=== PATIENT | female | born 2000 | race Two or more races ===

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

== ENCOUNTER 2019-05-21 17:51 | Emergency (ER) | payer OTHER ==
[~2019-05-21] VITALS: Ht 160 cm; Wt 65.8 kg
[~2019-05-21 17:51] MED LIST changes: +BACTRIM DS TAB1 EAC1 ORAL; +MUPIROCIN22 GM TOPIC; +TYLENOL EXTRA500 MG ORAL
[2019-05-21] MEDS ORDERED: NKM (18:00)
--- NOTE | 2019-05-21 18:05 | NUR ---
ED Nurse Note: Walk-in patient presents with complaints of left index finger pain d/t being smashed in a car door three hours ago. Patient also reports pain in the entire left arm 8/10 on pain scale. Will continue to monitor.
[2019-05-21 18:06] VITALS: BP 110/74
--- NOTE | 2019-05-21 18:09 | NUR ---
ED Nurse Note: Patient went down to radiology for xray.
--- NOTE | 2019-05-21 18:20 | NUR ---
ED Nurse Note: Patient returned from Xray.
--- NOTE | 2019-05-21 18:58 | Emergency Room Report ---
History of Present Illness General Chief Complaint: Upper Extremity Injury Source: Patient Present Illness HPI 19-year-old female with no significant past medical history complaining of pain and swelling of the left index finger after she crusted in a car door today. Patient reports that there was a regular Joaquín of a sedan that completely closed in her left index finger today. Denies any bleeding. However rates the pain 7 out of 10 without radiation denying tingling numbness. Has full range of motion with discomfort. Minimal swelling is noted no subungual hematoma is noted. No active bleeding is noted. Patient denies all other injuries. He denies chest pain, shortness of breath, palpitation, no other associated symptoms. Has not taken medication for symptom relief. Allergies: Coded Allergies: No Known Allergies (Unverified , 02/19/18) Patient History Past Medical History: see triage record Past Surgical History: unable to obtain Pertinent Family History: none Last Menstrual Period: 09/2018 Now: No Immunizations: UTD Reviewed Nursing Documentation: PMH: Agreed; PSxH: Agreed Nursing Documentation-PMH Past Medical History: No Stated History Hx Asthma: Yes Review of Systems All Other Systems: negative except mentioned in HPI Physical Exam Vital Signs Date Time Temp Pulse Resp B/P (MAP) Pulse Ox O2 Delivery O2 Flow Rate FiO2 05/21/19 17:57 98.4 68 16 110/74 (86) 98 Room Air Sp02 EP Interpretation: reviewed, normal General Appearance: no apparent distress, alert, GCS 15, non-toxic Head: normocephalic, atraumatic Eyes: bilateral eye normal inspection, bilateral eye PERRL ENT: hearing grossly normal, normal pharynx, no angioedema, normal voice Neck: full range of motion, supple/symm/no masses Respiratory: chest non-tender, lungs clear, normal breath sounds, no wheezing, speaking full sentences Cardiovascular #1: regular rate, rhythm, no edema, no murmur Cardiovascular #2: 2+ radial (R), 2+ radial (L) Gastrointestinal: normal bowel sounds, non tender, soft, non-distended, no guarding, no rebound Musculoskeletal: back normal, gait/station normal, normal range of motion, non- tender, swelling - left index finger at dip Neurologic: alert, oriented x3, responsive, motor strength/tone normal, sensory intact, speech normal Psychiatric: judgement/insight normal, memory normal, mood/affect normal, no suicidal/homicidal ideation Skin: no rash, Ecchymosis/Bruising - left indx finger Lymphatic: normal inspection Procedures Splinting Splinting : Consent: Verbal Location: left index finger Pre-Made Type: metal Pre-Proc Neuro Vasc Exam: normal Post-Proc Neuro Vasc Exam: normal Patient Tolerated: Well Complications: None Medical Decision Making PA Attestation All my diagnosis and treatment plans were reviewed ad discussed with my supervising physician Dr. Romero Diagnostic Impression: Primary Impression: Crushing injury of finger ER Course 19-year-old female with no significant past medical history complaining of pain and swelling of the left index finger after she crusted in a car door today. Patient reports that there was a regular Joaquín of a sedan that completely closed in her left index finger today. Denies any bleeding. However rates the pain 7 out of 10 without radiation denying tingling numbness. Has full range of motion with discomfort. Minimal swelling is noted no subungual hematoma is noted. No active bleeding is noted. Patient denies all other injuries. He denies chest pain, shortness of breath, palpitation, no other associated symptoms. Has not taken medication for symptom relief. Ddx considered but are not limited to: Hand sprain, hand sprain, hand fracture, finger crushing injury, contusion, fracture Vital signs: are WNL, pt. is afebrile H&PE are most consistent with : Finger crushing injury ORDERS: Hand x-ray, ibuprofen ED INTERVENTIONS: Metal splint DISCHARGE: At this time pt. is stable for d/c to home. Will provide printed patient care instructions, and any necessary prescriptions. Care plan and follow up instructions have been discussed with the patient prior to discharge. I advised the patient to follow with rn clinical documentation specialist also I told her that the treatment for crushed finger and fracture from finger is the same wearing the metal splint and follow with Ortho. Patient agrees with the above treatment Other X-Ray Diagnostic Results Other X-Ray Diagnostic Results : X-Ray ordered: Finger # of Views/Limited Vs Complete: 3 View Indication: Pain EP Interpretation: Yes TAWNY Xray: Interpretation reviewed, by supervising MD, and agrees with findings. Interpretation: no dislocation, no soft tissue swelling, other - Questionable crushing injury fracture Impression: No acute disease Electronically Signed by: Fatimah Abdi PA-C Last Vital Signs Date Time Temp Pulse Resp B/P (MAP) Pulse Ox O2 Delivery O2 Flow Rate FiO2 05/21/19 18:06 98.4 86 16 110/74 98 Room Air Disposition: HOME, SELF-CARE Condition: Stable Scripts Ibuprofen (Ibu) 800 Mg Tablet 800 MG PO TID, #30 TAB Prov: Fatimah Brady 05/21/19 Patient Instructions: Crush Injury, Fingers or Toes, [id number] Additional Instructions: Keep splint on take medication as directed follow-up with your primary care provider Fatimah Brady May 21, 2019 18:58
[2019-05-21] MEDS ORDERED: IBU800 MG PO (18:59)
--- NOTE | 2019-05-21 19:07 | NUR ---
ED Nurse Note: Patient finger has been wrapped. PAtient cleared for discharge, no s/s of acute distress. Patient verbalized understanding of discharge instructions. ID band removed. Patient departed with all belongings, accompanied by her boyfriend.
[2019-05-21 19:19] VITALS: BP 110/74
--- NOTE | 2019-05-22 14:19 | Diagnostic Imaging Report ---
Indication: Trauma, pain Technique: 3 views of the left second digit Comparison: none Findings: No acute fractures. No dislocations. Joint spaces are preserved Impression: Negative
== END 2019-05-21 19:07 | disposition home or self-care (01) ==
LOC: EMR 18:26
DX: S67.191A Crushing injury of left index finger, initial encounter (principal); J45.909 Unspecified asthma, uncomplicated; W23.0XXA Caught, crushed, jammed, or pinched between moving objects, initial encounter; Y92.810 Car as the place of occurrence of the external cause
CPT/HCPCS: 29130; 99283

== ENCOUNTER 2020-03-07 21:23 | Emergency (ER) | payer MEDICAID, OTHER ==
[~2020-03-07 21:23] MED LIST changes: +IBU800 MG PO; +NKM
== END 2020-03-08 01:30 | disposition home or self-care (01) ==
DX: O20.0 Threatened abortion (principal); Z3A.00 Weeks of gestation of pregnancy not specified
CPT/HCPCS: 36415; 76830; 76856; 80053; 81003; 83690; 84702; 85025; 85610; 85730; 86850; 86900; 86901; Z7502

== ENCOUNTER 2020-07-19 13:00 | Emergency (ER) | payer MEDICAID ==
[~2020-07-19] VITALS: Ht 160 cm; Wt 71.7 kg
[~2020-07-19 13:00] MED LIST changes: +ZOFRAN4 M1 ORAL
[2020-07-19 13:55] VITALS: BP 125/82
[2020-07-19] MEDS ORDERED: Ketorolac 30mg Inj IM ONE (14:00)
[2020-07-19] MEDS ORDERED: Metoclopramide 10mg/2ml Inj IM ONE (14:00)
[2020-07-19 14:27] LABS: APPEARANCE,URINE CLEAR; BILIRUBIN, URINE NEGATIVE (NEGATIVE); COLOR,URINE PALE YELLOW; GLUCOSE, URINE (UA) NEGATIVE (NEGATIVE); KETONES,URINE NEGATIVE (NEGATIVE); LEUKOCYTE ESTERASE ,URINE NEGATIVE (NEGATIVE); NITRITE,URINE NEGATIVE (NEGATIVE); PH,URINE 6 (4.5-8.0); PROTEIN,URINE NEGATIVE (NEGATIVE); UROBILINOGEN,URINE NORMAL MG/DL (0.0-1.0)
--- NOTE | 2020-07-19 14:36 | Emergency Room Report ---
History of Present Illness General Chief Complaint: Flu Like Symptoms Source: Patient (Princess Fried) Present Illness HPI 20-year-old female presents to the emergency department complaining of 8 out of 10 severity right-sided throbbing persistent headache that was progressive on onset x3 days. Patient reports history of migraines and states that her current symptoms are similar in character to symptoms that she typically has during a migraine. Patient reports aura with seeing black spots. Patient states no relief with Tylenol. She reports usually the migraine will subside after a day or so if she stays in a dark quiet place and usually sleeps it off. Patient states she does not actually have a neurologist. She reports nausea denies vomiting. Patient reports that she did cough once or twice on Tuesday of this week she states that this is not a symptom that she is complaining of it was merely asked during triage screening. She denies fevers or chills. Neck pain or stiffness. She denies suspicion of . She denies any URI symptoms such as nasal congestion rhinorrhea, or sore throat. Denies abdominal pain or tenderness. Denies constipation or diarrhea. No other significant past medical history other than childhood asthma. Denies paresthesias, muscle weakness or difficulty with speech. (Princess Fried) Allergies: Coded Allergies: No Known Allergies (Unverified , 02/19/18) COVID-19 Screening Contact w/high risk pt: No Experienced COVID-19 symptoms?: Yes COVID-19 Testing performed MANAGER TECHNICAL TRAINING: Yes COVID-19 Screening: Negative COVID-19 COVID-19 Testing [place] [facility] [place]Princess Fried[place] Patient History Past Medical History: see triage record Past Surgical History: none Pertinent Family History: none Last Menstrual Period: now Now: No Reviewed Nursing Documentation: PMH: Agreed; PSxH: Agreed (Princess Fried) Nursing Documentation-PMH Past Medical History: No History, Except For Hx Cardiac Problems: No Hx Asthma: Yes - childhood asthma not on medications as an adult Hx Cancer: No Hx Gastrointestinal Problems: No Hx Neurological Problems: Yes - migraines (Princess Fried) Review of Systems All Other Systems: negative except mentioned in HPI (Princess Fried) Physical Exam Vital Signs Date Time Temp Pulse Resp B/P (MAP) Pulse Ox O2 Delivery O2 Flow Rate FiO2 07/19/20 13:05 98.2 77 20 121/81 (94) 97 Room Air 07/19/20 13:55 98 Sp02 EP Interpretation: reviewed, normal General Appearance: no apparent distress, alert, GCS 15, non-toxic Head: normocephalic, atraumatic Eyes: bilateral eye normal inspection, bilateral eye PERRL, bilateral eye EOMI, bilateral eye other - no significan tphotophobis ENT: hearing grossly normal, normal voice Neck: full range of motion, no meningismus, no bony tend Respiratory: chest non-tender, lungs clear, normal breath sounds, no respiratory distress, no accessory muscle use, no wheezing, speaking full sentences Cardiovascular #1: regular rate, rhythm, normal capillary refill Gastrointestinal: normal bowel sounds, non tender, soft Genitourinary: normal inspection, no CVA tenderness Musculoskeletal: back normal, normal range of motion, gait/station normal, non- tender Neurologic: alert, motor strength/tone normal, distal neuro normal, oriented x3, sensory intact, cerebellar normal, responsive, speech normal, normal gait, grossly normal, no focal defects Psychiatric: judgement/insight normal Skin: no rash, normal color Lymphatic: no adenopathy (Princess Fried) Medical Decision Making PA Attestation Dr. Cortez is my supervising Physician whom patient management has been discussed with. (Princess Fried) Diagnostic Impression: Primary Impression: Headache Qualified Codes: R51.9 - Headache, unspecified ER Course 20-year-old female presents to the emergency department complaining of 8 out of 10 severity right-sided throbbing persistent headache that was progressive on onset x3 days. Patient reports history of migraines and states that her current symptoms are similar in character to symptoms that she typically has during a migraine. Patient reports aura with seeing black spots. Patient states no relief with Tylenol. She reports usually the migraine will subside after a day or so if she stays in a dark quiet place and usually sleeps it off. Patient states she does not actually have a neurologist. She reports nausea denies vomiting. Patient reports that she did cough once or twice on Tuesday of this week she states that this is not a symptom that she is complaining of it was merely asked during triage screening. She denies fevers or chills. Neck pain or stiffness. She denies suspicion of . She denies any URI symptoms such as nasal congestion rhinorrhea, or sore throat. Denies abdominal pain or tenderness. Denies constipation or diarrhea. No other significant past medical history other than childhood asthma. Denies paresthesias, muscle weakness or difficulty with speech. Ddx considered but are not limited to migraine, SAH, Pseudomotor Cerebri, Mass lesion, Cluster MERCER, Tension MERCER, Post lumbar puncture MERCER. Vital signs: are WNL, pt. is afebrile H&PE are most consistent with migraine headache-no focal neurological deficits. Patient is nontoxic in appearance and in no significant acute distress. ORDERS: - UA -Urine Hcg: negative ED INTERVENTIONS: -10 mg Reglan IM -IM Toradol 15mg -Benadryl 25mg PO upon re-evaluation of pt. after ED interventions, Pt. reports her MERCER has almost completely subsided. She reports feeling much better and we discussed dc plan. -I do not identify an emergent condition at this time. With current presentation, pt. is stable for close outpatient follow up and conservative treatment. D/w pt. to return promptly to ED with worsening or new symptoms.- Pt. verbalizes' understanding and agreement with proposed treatment plan. DISCHARGE: At this time pt. is stable for d/c to home. Will provide printed patient care instructions, and any necessary prescriptions. Care plan and follow up instructions have been discussed with the patient prior to discharge. Labs Test 07/19/20 13:12 Urine Color Pale yellow Urine Appearance Clear Urine pH 6 (4.5-8.0) Urine Specific Spencer 1.020 (1.005-1.035) Urine Protein Negative (NEGATIVE) Urine Glucose (UA) Negative (NEGATIVE) Urine Ketones Negative (NEGATIVE) Urine Blood 1+ (NEGATIVE) Urine Nitrite Negative (NEGATIVE) Urine Bilirubin Negative (NEGATIVE) Urine Urobilinogen Normal MG/DL (0.0-1.0) Urine Leukocyte Esterase Negative (NEGATIVE) Urine RBC 0-2 /HPF (0 - 2) Urine WBC 0 /HPF (0 - 2) Urine Squamous Epithelial Cells Occasional /LPF Urine Bacteria Occasional /HPF (NONE) Urine HCG, Qualitative Negative (NEGATIVE) (Princess Fried) Last Vital Signs Date Time Temp Pulse Resp B/P (MAP) Pulse Ox O2 Delivery O2 Flow Rate FiO2 07/19/20 13:55 79 21 Room Air 98 07/19/20 13:55 98.2 125/82 98 Status: improved (Princess Fried) Disposition: HOME, SELF-CARE Condition: Stable Scripts Acetamin/Butalbital/Caffeine* (FIORICET*) 1 Ea Tab 1 TAB ORAL Q6H, #12 TAB 0 Refills Prov: Princess Fried 07/19/20 Referrals: NOT CHOSEN IPA/MD,REFERRING (PCP) Additional Instructions: Take medications as directed. Follow up with a Primary Care Provider in 3-5 days For a referral to have NEUROLOGIST Evaluation, even if your symptoms have resolved. --Please review list of primary care clinics, if you do not already have a primary care provider Return sooner to ED if new symptoms occur, or current symptoms become worse. - Please note that this Emergency Department Report was dictated using [employer] manager technology software, occasionally this can lead to erroneous entry secondary to interpretation by the dictation equipment. Princess Fried Jul 19, 2020 14:36 David Cortez MD Jul 19, 2020 17:52
[2020-07-19] MEDS ORDERED: FIORICET1 EA ORAL (15:38)
[2020-07-19 16:07] VITALS: BP 123/72
== END 2020-07-19 16:08 | disposition home or self-care (01) ==
LOC: EMR 13:20
DX: R51.9 Headache, unspecified (principal)
CPT/HCPCS: 81003; 81025; 96372; J1885; J2765; Z7502; 99283

== ENCOUNTER 2020-10-17 08:13 | Emergency (ER) | payer MEDICAID ==
[~2020-10-17] VITALS: Ht 162.6 cm; Wt 72.6 kg
[~2020-10-17 08:13] MED LIST changes: +FIORICET1 EA ORAL
--- NOTE | 2020-10-17 08:26 | Emergency Room Report ---
History of Present Illness General Chief Complaint: To Be Triaged Source: Patient Present Illness HPI 20-year-old female with past medical history of ectopic March 2020 presents emergency department complaining of vaginal bleeding and lower pelvic abdominal cramping. Last menstrual period was 7 weeks ago and she states that she is 7 weeks . Apparently she saw her primary care doctor yesterday and did a urine test which came back negative. She was confused because she had had several urine test that were performed at home on the same day that were positive. [facility]. She was advised to go to an outpatient lab, however they were all closed today. She is here specifically to get her hormone levels checked to confirm . She has only bled through 1 pad today, denies vaginal hemorrhaging, nausea, vomiting, chest pain, back pain, shortness of breath, lightheadedness, presyncope/syncope, headache, hematuria, dysuria, melena, hematochezia, or history of blood transfusion. The patient's symptoms were gradual onset, severity was moderate, duration since Tuesday (5 days). Quality: Cramping Past medical history: Ectopic Past surgical history: Denies Smoking: Denies Alcohol use: Denies Drug use: Denies Review of systems: CONST: No fevers or chills, No night sweats PULMONARY: No productive cough, No shortness of breath CARDIAC: No chest pain, No palpitations GI: No vomiting, No diarrhea , No melena_or_BRBPR : No dysuria, No hematuria, No discharge NEURO: No new_focal_weakness_or_numbness, No confusion, No vision changes 14 point Review of Systems is otherwise negative except per HPI Physical Exam: GENERAL: Awake_alert_ nontoxic, no acute distress Spo2 100% on RA -normal EYES: Extraocular muscles are intact. Conjunctivae clear. Lids without swelling ENT: External nose and ear normal_in_appearance. Oropharynx clear. Head_atraumatic, Moist_oral_mucosa NECK: No JVD. No meningismus. No thyromegaly. Supple. Trachea midline RESP: Normal respiratory effort. Symmetric rise. No stridor. Clear_to_auscultation_No_rales_No_wheezes CARDIAC: Regular rate and regular rhytm. No_significant pedal edema. ABDOMEN: Soft. Nondistended. Midline pelvis TTP. _No_rebound_or_guarding. Negative Denis sign. No CVA tenderness to palpation. Negative Rascon sign.. : Trace amount of vaginal bleeding, non arterial. Old blood in vaginal vault. No mucosal laceration. Os is closed. Normal ext genitalia, no CMT, Chaperoned by female staff nurse butcher assistant (Milagros) MSK: Normal muscle tone, without rigidity. Extremities without asymmetric deformity or swelling. SKIN: Warm and dry. No visible cyanosis or pallor NEUROLOGIC: Alert, oriented x3 nonperitoneal. Motor_and_sensation_grossl y_intact. No truncal ataxia. Gait_normal Psych: Normal mood and affect, normal judgment and insight - COORDINATION OF CARE Case was discussed with: Patient , Patient's Physician Any labs and imaging that were ordered were interpreted as part of the medical decision making: Medical Decision Making/Plan: Differential diagnosis includes, ectopic , miscarriage, hemorrhagic ovarian cyst, threatened , inevitable , fibroids, severe anemia, dysfunctional uterine bleeding, vaginal / uterine mass, among others. Patient is well appearing and hemodynamically stable. exam shows closed ut erine os, no active hemorrhage. Abdominal examination has midline tenderness to palpation over the uterus, otherwise no peritoneal signs. test is POSITIVE. Quant is 53. Patients hemoglobin is not severely low; no indication for blood transfusion at this time. Rh status is O+, Rhogam was not indicated. Ultrasound was obtained but was indeterminate, not able to identify a definitive IUP, no yolk sac or heart activity found. There is an anechoic tubular structure seen adjacent to the right ovary, perhaps hydrosalpinx according to the radiologist. There is no intra-abdominal free fluid. Normal vascular flow is seen to the bilateral ovaries. Unlikely ruptured ectopic at this time point, patients abdomen is not peritoneal, no significant tenderness. The patients presentation is not consistent with hemorrhagic ovarian cyst or torsion, and has no significant tenderness on exam. Possibilities still include ectopic vs miscarriage and patient was advised to return in 24-48 hr for repeat quant/ultrasound. The patient appears stable for discharge home and follow up here in the ED in 24-48 hrs for repeat HCG quant testing, reevaluation and further treatment. STRICT ER RETURN PRECAUTIONS given for ruptured ectopic to patient and . Pain in the emergency department was controlled with Tylenol. Rocephin given for UTI. Hydrosalpinx treated with azithro for atypical coverage. She denies G/C/STI hx. Will discharge with Keflex. Patient was instructed that if her urinalysis grows bacteria that is not sensitive to Keflex that she will be called back with a change in her prescription. She verbalizes her understanding. Pertinent results reviewed with the patient. I educated the patient on the current treatment plan including the risks, benefits, and alternatives. I also discussed the extent and limitations of the current evaluation. The patient expressed understanding and agreement with plan. I recommended PMD follow-up within 1-2 days. Also advised that the patient return to the Emergency Department as soon as possible if they experience any new, persistent, or worsening symptoms. Allergies: Coded Allergies: No Known Allergies (Unverified , 02/19/18) COVID-19 Screening Contact w/high risk pt: No Experienced COVID-19 symptoms?: Yes Nursing Documentation-PMH Hx Cardiac Problems: No Hx Asthma: Yes - childhood asthma not on medications as an adult Hx Cancer: No Hx Gastrointestinal Problems: No Hx Neurological Problems: Yes - migraines Physical Exam Sp02 EP Interpretation: reviewed, normal Medical Decision Making Diagnostic Impression: Primary Impression: Vaginal bleeding Additional Impressions: UTI (urinary tract infection) Threatened miscarriage Hydrosalpinx Diagnostic POCUS Bedside Ultrasound Diagnostics: Comment US OB 1ST Trimester w/Transvag CLINICAL HISTORY: Heavy vaginal bleeding. History of prior ectopic . 03/07/2020 COMPARISON: None TECHNIQUE: Ultrasound examination of the pelvis includes grayscale images, and color and spectral doppler analysis. FINDINGS: Transabdominal and transvaginal technique utilized. The uterus measures 6.8 x 4.5 x 2.9 cm. Myometrium is diffusely heterogeneous. Endometrial stripe is thickened and heterogeneous measuring up to 12 mm in thickness. There appears to be heterogeneous debris within the endometrial cavity but no gestational sac demonstrated. Right ovary measures 3 x 3.4 cm with small follicles. Left ovary measures 2.4 x 2.1 cm. Normal vascular flow seen bilaterally. There is a questionable anechoic tubular structure seen adjacent to the right ovary. Question possible hydrosalpinx given history of prior ectopic . No definite ectopic seen presently although this cannot be excluded given lack of an IUP and reported positive hCG. IMPRESSION: ENDOTRACHEAL CAVITY CONTAINS HETEROGENEOUS DEBRIS BUT NO DISTINCT GESTATIONAL SAC DEMONSTRATED. NO DEFINITE ECTOPIC SEEN, BUT GIVEN LACK OF AN IUP AND REPORTED POSITIVE HCG, AN ECTOPIC CANNOT BE EXCLUDED. ANECHOIC TUBULAR STRUCTURE SEEN ADJACENT TO THE RIGHT OVARY PERHAPS HYDROSALPINX. Dictated By: Kenney Cruz MD Disposition: HOME, SELF-CARE Admit Decision Time: 12:30 Condition: Stable Physician Consult: [facility] [employer] @ 1100 Scripts Metronidazole* (FLAGYL*) 500 Mg Tablet 500 MG ORAL BID for 14 Days, #28 TAB Prov: Lupe Oconnor D.O. 10/17/20 Acetaminophen* (TYLENOL EXTRA STRENGTH*) 500 Mg Tablet 500 MG ORAL Q8H PRN for Prn Headache/Temp > 101, #30 TAB 0 Refills Prov: Lupe Oconnor D.O. 10/17/20 Cephalexin* (KEFLEX*) 500 Mg Capsule 500 MG ORAL EVERY 12 HOURS, #14 CAP 0 Refills Prov: Lupe Oconnor D.O. 10/17/20 Referrals: Scott Briones MD Departure Forms: Return to Work Return to Work in (Days): 3 Return to Work Date: Oct 21, 2020 Patient Instructions: Abdominal Pain During , [id number], Threatened Miscarriage, [id number] Additional Instructions: Instructions for patient/asset management coordinator: Follow up with your physician in 1-2 day for repeat examination. You will need to follow-up with MANAGER OF WAREHOUSE specialist for your right sided hydrosalpinx (blocked fallopian tube). Do not drink alcohol while taking your antibiotics as it will cause severe nausea and vomiting. Follow-up with your doctor sooner if your condition requires a more timely clinical reevaluation. Return to the emergency department immediately if you feel that your condition is worsening or if you have any new or concerning symptoms. Review your discharge instructions and take any prescriptions given as instructed. [facility] PROVIDES FREE OR LOW-COST HEALTH SERVICES TO PEOPLE WHO CAN SHOW PROOF THAT THEY LIVE IN [facility]. TO FIND MORE CLINICS PARTNERED WITH THE [facility] TO PROVIDE SERVICE, PLEASE CALL . Lupe Oconnor D.O. Oct 17, 2020 08:26
[2020-10-17 08:49] VITALS: BP 123/78
[2020-10-17 09:01] LABS: BASOPHILS % (AUTO) 0.6 % (0.0-2.0); EOSINOPHILS % (AUTO) 1.3 % (0.0-3.0); HEMATOCRIT 41.3 % (37.0-47.0); HEMOGLOBIN 13.9 G/DL (12.0-16.0); LYMPHOCYTES % (AUTO) 28.9 % (20.0-45.0); MEAN CORPUSCULAR VOLUME 91 FL (80-99); MONOCYTES % (AUTO) 6.6 % (1.0-10.0); NEUTROPHILS % (AUTO) 62.6 % (45.0-75.0); PLATELET COUNT 285 K/UL (150-450); RED BLOOD COUNT 4.52 M/UL (4.20-5.40); RED CELL DISTRIBUTION WIDTH 11.1 % (11.6-14.8); WHITE BLOOD COUNT 8.3 K/UL (4.8-10.8)
[2020-10-17 09:12] LABS: ANION GAP 7 mmol/L (5-15); BLOOD UREA NITROGEN 7 mg/dL (7-18); CALCIUM 9.6 MG/DL (8.5-10.1); CARBON DIOXIDE 27 MMOL/L (21-32); CHLORIDE 104 MMOL/L (98-107); CREATININE 0.7 MG/DL (0.55-1.30); POTASSIUM 4.1 MMOL/L (3.5-5.1); SODIUM 138 MMOL/L (136-145)
[2020-10-17 09:13] LABS: APPEARANCE,URINE CLOUDY; BILIRUBIN, URINE NEGATIVE (NEGATIVE); COLOR,URINE RED; GLUCOSE, URINE (UA) NEGATIVE (NEGATIVE); KETONES,URINE NEGATIVE (NEGATIVE); LEUKOCYTE ESTERASE ,URINE 2+ (NEGATIVE); NITRITE,URINE POSITIVE (NEGATIVE); PH,URINE 5 (4.5-8.0); PROTEIN,URINE 3+ (NEGATIVE); UROBILINOGEN,URINE NORMAL MG/DL (0.0-1.0)
[2020-10-17 09:17] LABS: ALANINE AMINOTRANSFERASE 21 U/L (12-78); ALBUMIN 4.2 G/DL (3.4-5.0); ALBUMIN/GLOBULIN RATIO 1.1 (1.0-2.7); ALKALINE PHOSPHATASE 89 U/L (46-116); ASPARTATE AMINO TRANSFERASE 20 U/L (15-37); BILIRUBIN,TOTAL 0.2 MG/DL (0.2-1.0)
[2020-10-17] MEDS ORDERED: Acetaminophen 500mg (ES) tab ORAL ONE (09:30)
[2020-10-17] MEDS ORDERED: cefTRIAXone 1 GM in NS 55 ML IVPB ONE (09:30)
--- NOTE | 2020-10-17 09:32 | NUR ---
Presented to the ER c/o lower abdominla pain with vaginal bleeding/clots. He last menstrual period was seven weeks ago. She reported that she took several pregannacy tests at home which were all positive but [facility], took a test which was negative. She was advised then to go the lab for testing but the labs are closed , so she came to the ER today to get her hormone levels checked for preganancy confirmation.
[2020-10-17] MEDS ORDERED: CEPHALEXIN500 MG ORAL (09:55)
[2020-10-17] MEDS ORDERED: TYLENOL EXTRA500 MG ORAL (09:55)
--- NOTE | 2020-10-17 10:50 | Diagnostic Imaging Report ---
EXAM: US OB 1ST Trimester w/Transvag CLINICAL HISTORY: Heavy vaginal bleeding. History of prior ectopic . 03/07/2020 COMPARISON: None TECHNIQUE: Ultrasound examination of the pelvis includes grayscale images, and color and spectral doppler analysis. FINDINGS: Transabdominal and transvaginal technique utilized. The uterus measures 6.8 x 4.5 x 2.9 cm. Myometrium is diffusely heterogeneous. Endometrial stripe is thickened and heterogeneous measuring up to 12 mm in thickness. There appears to be heterogeneous debris within the endometrial cavity but no gestational sac demonstrated. Right ovary measures 3 x 3.4 cm with small follicles. Left ovary measures 2.4 x 2.1 cm. Normal vascular flow seen bilaterally. There is a questionable anechoic tubular structure seen adjacent to the right ovary. Question possible hydrosalpinx given history of prior ectopic . No definite ectopic seen presently although this cannot be excluded given lack of an IUP and reported positive hCG. IMPRESSION: ENDOTRACHEAL CAVITY CONTAINS HETEROGENEOUS DEBRIS BUT NO DISTINCT GESTATIONAL SAC DEMONSTRATED. NO DEFINITE ECTOPIC SEEN, BUT GIVEN LACK OF AN IUP AND REPORTED POSITIVE HCG, AN ECTOPIC CANNOT BE EXCLUDED. ANECHOIC TUBULAR STRUCTURE SEEN ADJACENT TO THE RIGHT OVARY PERHAPS HYDROSALPINX.
[2020-10-17] MEDS ORDERED: METRONIDAZOLE500 MG ORAL (11:06)
[2020-10-17] MEDS ORDERED: Azithromycin 250mg tab ORAL ONE (11:15)
== END 2020-10-17 12:42 | disposition home or self-care (01) ==
LOC: EMR 08:51
DX: O20.0 Threatened abortion (principal); O23.40 Unspecified infection of urinary tract in pregnancy, unspecified trimester
CPT/HCPCS: 76801; 76817; 80053; 81003; 83690; 84702; 85025; 85610; 85730; 96365; J0696; Q0144; Z7502; 99284

== ENCOUNTER 2020-10-20 14:15 | Emergency (ER) | payer MEDICAID ==
[~2020-10-20] VITALS: Ht 160 cm; Wt 59.0 kg
[~2020-10-20 14:15] MED LIST changes: +METRONIDAZOLE500 MG ORAL
--- NOTE | 2020-10-20 15:30 | NUR ---
camre to er for follow up which was instructed by md to come back no abdominal pain
--- NOTE | 2020-10-20 15:42 | Emergency Room Report ---
History of Present Illness General Chief Complaint: To Be Triaged Present Illness HPI 20 YO female presents to the ED c/o need for US f/u. She was seen here 5 days ago. Has not been able to f/u with OBGYN or PCP. She had positive , with hcg. of 54 and inconclusive US here 5 days ago which also showed possible hydosalpingitis. She has hx of ectopic pregnancies in the past. Pt. reports Right sided cramping pain intermittent worse with walking. Patient reports some pressure in the right adnexal area. She reports that her vaginal bleeding has lessened and is now scant spotting that she describes as darker blood. He denies nausea or vomiting, fevers or chills. She denies abdominal tenderness, syncope or extreme abdominal pain. No other aggravating or relieving factors at this time. Denies dysuria, hematuria, urinary frequency or urgency just to name a few. Pt. reports taking all previously prescribed medications. Allergies: Coded Allergies: No Known Allergies (Unverified , 02/19/18) COVID-19 Screening Contact w/high risk pt: No Experienced COVID-19 symptoms?: No Patient History Past Medical History: see triage record Past Surgical History: none Pertinent Family History: none Reviewed Nursing Documentation: PMH: Agreed; PSxH: Agreed Nursing Documentation-PMH Hx Cardiac Problems: No Hx Asthma: Yes - childhood asthma not on medications as an adult Hx Cancer: No Hx Gastrointestinal Problems: No Hx Neurological Problems: Yes - migraines Review of Systems All Other Systems: negative except mentioned in HPI Physical Exam Sp02 EP Interpretation: reviewed, normal General Appearance: no apparent distress, alert, GCS 15, non-toxic Head: normocephalic, atraumatic Eyes: bilateral eye normal inspection, bilateral eye PERRL ENT: hearing grossly normal, normal voice Neck: full range of motion Respiratory: chest non-tender, lungs clear, normal breath sounds, speaking full sentences Cardiovascular #1: regular rate, rhythm Gastrointestinal: normal bowel sounds, non tender, soft, non-distended, no guarding Genitourinary: normal inspection, no CVA tenderness, adnexa normal Musculoskeletal: back normal, normal range of motion, gait/station normal, non- tender Neurologic: alert, motor strength/tone normal, oriented x3, sensory intact, responsive, speech normal Psychiatric: judgement/insight normal Skin: no rash, normal color Lymphatic: no adenopathy Medical Decision Making PA Attestation Dr. Shepherd is my supervising Physician whom patient management has been discussed with. Diagnostic Impression: Primary Impression: Complete miscarriage ER Course 20 YO female presents to the ED c/o need for US f/u. She was seen here 5 days ago. Has not been able to f/u with OBGYN or PCP. She had positive , with hcg. of 54 and inconclusive US here 5 days ago which also showed possible hydosalpingitis. She has hx of ectopic pregnancies in the past. Pt. reports Right sided cramping pain intermittent worse with walking. Patient reports some pressure in the right adnexal area. She reports that her vaginal bleeding has lessened and is now scant spotting that she describes as darker blood. He denies nausea or vomiting, fevers or chills. She denies abdominal tenderness, syncope or extreme abdominal pain. No other aggravating or relieving factors at this time. Denies dysuria, hematuria, urinary frequency or urgency just to name a few. Pt. reports taking all previously prescribed medications. Ddx considered but are not limited to Diverticulitis, acute appendicitis, ovarian torsion, ectopic , PID tubo-ovarian abscess, ovarian cyst. Vital signs: are WNL, pt. is afebrile H&PE are most consistent with possible ovarian cyst, however due to presentation will r/o torsion, ectopic, and stone. ORDERS: -Serum HCG: Negative -Pelvic OB US Complete: No IUP, no mention of hydrosalpinx per US tech. ED INTERVENTIONS: -none DISCHARGE: At this time pt. is stable for d/c to home. Will provide printed patient care instructions, and any necessary prescriptions. Care plan and follow up instructions have been discussed with the patient prior to discharge. Labs Test 10/20/20 15:23 Human Chorionic Gonadotropin, Qual Negative (NEGATIVE) CT/MRI/US Diagnostic Results CT/MRI/US Diagnostic Results : Imaging Test Ordered: OB US Impression "Impression: Essentially unremarkable exam. Note previously demonstrated endometrial debris is no longer evident, presumably has been expelled Trace free pelvic fluid, presumably physiologic." --Per official radiology report- Please see report for specific details. Status: improved Disposition: HOME, SELF-CARE Condition: Stable Scripts Ibuprofen* (MOTRIN*) 600 Mg Tablet 600 MG ORAL THREE TIMES A DAY, #20 TAB Prov: Princess Fried 10/20/20 Patient Instructions: Miscarriage Additional Instructions: Take medications as directed. Follow up with a OBGYN within 3-5 days, even if your symptoms have re solved. Return sooner to ED if new symptoms occur, or current symptoms become worse. - Please note that this Emergency Department Report was dictated using [employer] technology software, occasionally this can lead to erroneous entry secondary to interpretation by the dictation equipment. Princess Fried Oct 20, 2020 15:42
--- NOTE | 2020-10-20 16:30 | NUR ---
to radiology for ultrasound
--- NOTE | 2020-10-20 16:52 | Diagnostic Imaging Report ---
Indication: Pelvic pain and light bleeding, history of recent positive test, currently test is negative Technique: Transabdominal and transvaginal images of the pelvis. Doppler interrogation of the ovaries Comparison: 10/17/2020 Findings: Uterus measures 6.3 cm length by 2.7 cm AP. The endometrium measures 4 mm thick. Previously demonstrated endometrial thickening, heterogeneity, and debris is no longer evident no myometrial abnormality. The ovaries are normal in size and contour. They demonstrate normal Doppler signal. A small cervical nabothian cyst is noted. There is trace free pelvic fluid Impression: Essentially unremarkable exam. Note previously demonstrated endometrial debris is no longer evident, presumably has been expelled Trace free pelvic fluid, presumably physiologic
--- NOTE | 2020-10-20 17:00 | NUR ---
back from ultrasound
[2020-10-20] MEDS ORDERED: IBUPROFEN600 M1 ORAL (17:05)
--- NOTE | 2020-10-20 17:30 | NUR ---
discharged home with instruction
[2020-10-20 17:31] VITALS: BP 108/80
[2020-10-20 17:32] VITALS: BP 108/80
== END 2020-10-20 18:13 | disposition home or self-care (01) ==
LOC: EMR 15:42
DX: O03.9 Complete or unspecified spontaneous abortion without complication (principal)
CPT/HCPCS: 36415; 76801; 76817; 84703; Z7502; 99284